=== PATIENT | female | born 1990 | race African-American/Black ===

== ENCOUNTER 2017-10-24 11:44 | Emergency (ER) | payer OTHER ==
[~2017-10-24] VITALS: Ht 162.5 cm; Wt 59.0 kg
[~2017-10-24 11:44] MED LIST: ACYCLOVIR800 MG PO; AMOXIL500 MG PO; BACTRIM DS 8001 TA1 PO; CIPRO250 MG PO; CLARITIN10 MG PO; DEPO PROVER150 MG/M1; DIFLUCAN150 MG PO; FLAGYL500 MG PO; FLONASE ALLERG9.9 ML NAS; MOTRIN800 MG PO; NKHM; PERCOCET 325 MG1 TA2 PO; PREDNISONE10 MG PO; PRENATAL1 TA1 PO; ROBITUSSIN AC 110 ML PO; TOBREX OPHTH S2.5 ML OPH; VALTREX500 MG PO; VICODIN 5/500 505 MG PO; VICODIN1 TAB; ZOVIRAX400 MG PO; Zofran4 MG PO
[2017-10-24] MEDS ORDERED: AMOXICILLIN500 M2 PO (12:59)
== END 2017-10-24 13:56 | disposition home or self-care (01) ==
LOC: ED 11:44
DX: H66.92 Otitis media, unspecified, left ear (principal); F17.200 Nicotine dependence, unspecified, uncomplicated; Z98.890 Other specified postprocedural states

== ENCOUNTER 2018-01-04 14:47 | Emergency (ER) | payer OTHER ==
[~2018-01-04] VITALS: Ht 162.5 cm; Wt 62.6 kg
[~2018-01-04 14:47] MED LIST changes: +AMOXICILLIN500 M2 PO
[2018-01-04] MEDS ORDERED: NAPROSYN500 MG PO (16:41)
== END 2018-01-04 16:59 | disposition home or self-care (01) ==
LOC: ED 14:47
DX: S46.911A Strain of unspecified muscle, fascia and tendon at shoulder and upper arm level, right arm, initial encounter (principal); W19.XXXA Unspecified fall, initial encounter; Y93.89 Activity, other specified; Y92.89 Other specified places as the place of occurrence of the external cause; Y99.8 Other external cause status

== ENCOUNTER → 2018-06-23 | Outpatient (CLI) | payer OTHER ==
[~2018-06-23] MED LIST changes: +NAPROSYN500 MG PO
--- NOTE | ~2018-06-23 | EKG ---
[place], [place] ELECTROCARDIOGRAM REPORT NAME: NAGA MAYS UNIT #: [id number] ROOM: DOCTOR: EPIPHANY DRAFT REPORT BIRTHDATE: [address] [facility] Test Date: 2018-06-23 Test Time: 17:47:18 Pat Name: NAGA MAYS Department: Room: Gender: F Gang Boss: Yojana Bhatt : 1990 Requested By: MARY SOLORZANO Order Number: [id number] Reading MD: Karan Gomes MD Measurements Intervals [place] Rate: 64 P: 45 SD: 274 QRS: 69 QRSD: 87 T: 47 QT: 423 QTc: 437 Interpretive Statements Sinus rhythm Prolonged SD interval No previous ECG available for comparison Electronically Signed On 06-24-2018 4:09:53 PDT by Karan Gomse MD CM:EKGRPT:ELECTROCARDIOGRAM REPORT [id number] MARY SOLORZANO EPIPHANY DRAFT REPORT MARY SOLORZANO
[2018-06-23 17:05] LABS: BASO # 0.1 10*3/uL (0.0-0.1); BASO % 0.6 % (0.0-1.0); EOS # 0.3 10*3/uL (0.0-0.4); EOS % 3.3 % (1.0-4.0); HEMOGLOBIN 13.9 g/dl (12.0-16.0); LYMPH # 2.2 10*3/uL (1.3-4.4); LYMPH % 26.4 % (27.0-41.0); MEAN CELL VOLUME 98.2 fl (81.0-99.0); MEAN CORPUSCULAR HGB 31.7 pg (27.0-31.0); MEAN CORPUSCULAR HGB CONC 32.3 g/dl (33.0-37.0); MEAN PLATELET VOLUME 11.4 fl (9.6-12.3); MONO # 0.4 10*3/uL (0.1-1.0); MONO % 5.1 % (3.0-9.0); NEUT # 5.3 10*3/uL (2.3-7.9); NEUT % 64.4 % (47.0-73.0); PLATELET COUNT AUTOMATED 201 10*3/uL (130-400); RED BLOOD COUNT 4.38 10*6/uL (4.10-5.10); WHITE BLOOD COUNT 8.2 10*3/uL (4.8-10.8)
[2018-06-23 17:35] LABS: ALBUMIN 3.9 gm/dl (3.1-4.5); ALKALINE PHOSPHATASE 58 U/L (45-117); BUN 13 mg/dl (7-24); CHLORIDE 103 mmol/L (98-107); CHOLESTEROL 185 mg/dL (<200); CREATININE 0.77 mg/dL (0.55-1.02); HDL CHOLESTEROL 67 mg/dl (40-60); LDL CHOLESTEROL 97 mg/dL (9-159); POTASSIUM 3.9 mmol/L (3.5-5.1); SGOT/AST 15 IU/L (3-35); SGPT/ALT 22 U/L (12-78); SODIUM 135 mmol/L (136-145); TOTAL PROTEIN 7.5 gm/dL (6.4-8.2); TRIGLYCERIDES 105 mg/dl (<150); VLDL CHOLESTEROL 21 mg/dL (6-40)
== END | disposition home or self-care (01) ==
LOC: LAB 16:19
PROVIDERS: Nurse Practitioner Family
DX: M54.2 Cervicalgia (principal); M25.561 Pain in right knee; Z82.49 Family history of ischemic heart disease and other diseases of the circulatory system; Z72.0 Tobacco use

== ENCOUNTER 2019-01-20 11:09 | Emergency (ER) | payer OTHER ==
[~2019-01-20] VITALS: Ht 162.5 cm; Wt 63.5 kg
[2019-01-20 12:20] LABS: BASO % 0.6 % (0.0-1.0); EOS # 0.2 10*3/uL (0.0-0.4); EOS % 2.7 % (1.0-4.0); HEMATOCRIT 39.8 % (37.0-47.0); HEMOGLOBIN 13.3 g/dl (12.0-16.0); LYMPH # 1.5 10*3/uL (1.3-4.4); MEAN CELL VOLUME 96.1 fl (81.0-99.0); MEAN CORPUSCULAR HGB 32.1 pg (27.0-31.0); MEAN CORPUSCULAR HGB CONC 33.4 g/dl (33.0-37.0); MEAN PLATELET VOLUME 11.6 fl (9.6-12.3); MONO # 0.5 10*3/uL (0.1-1.0); NEUT # 4.2 10*3/uL (2.3-7.9); NEUT % 65.5 % (47.0-73.0); PLATELET COUNT AUTOMATED 187 10*3/uL (130-400); RED BLOOD COUNT 4.14 10*6/uL (4.10-5.10); RED CELL DISTRI WIDTH 12.4 % (0-14.5); WHITE BLOOD COUNT 6.4 10*3/uL (4.8-10.8)
[2019-01-20 12:33] LABS: ALBUMIN 3.5 gm/dl (3.1-4.5); ALKALINE PHOSPHATASE 53 U/L (45-117); BUN 11 mg/dl (7-24); CHLORIDE 108 mmol/L (98-107); CREATININE 0.79 mg/dL (0.55-1.02); LIPASE 158 U/L (73-393); SGOT/AST 19 IU/L (3-35); SGPT/ALT 24 U/L (12-78); SODIUM 137 mmol/L (136-145); TOTAL PROTEIN 6.9 gm/dL (6.4-8.2)
[2019-01-20 13:24] LABS: BILIRUBIN NEGATIVE (NEGATIVE); BLOOD NEGATIVE (NEGATIVE); CLARITY SL CLOUDY (CLEAR); COLOR YELLOW (YELLOW); GLUCOSE NEGATIVE (NEGATIVE); KETONE NEGATIVE (NEGATIVE); LEUKO ESTERASE NEGATIVE (NEGATIVE); NITRITE NEGATIVE (NEGATIVE); PH 7.5 (5.0-9.0); UROBILINOGEN 0.2 E.U./dl (0.2-1.0)
[2019-01-20] MEDS ORDERED: IBUPROFEN600 MG PO (13:42)
[2019-01-20] MEDS ORDERED: PROVENTIL HFA6.7 GM INH (13:42)
[2019-01-20] MEDS ORDERED: TESSALON PERLE100 M1 PO (13:42)
== END 2019-01-20 14:09 | disposition home or self-care (01) ==
LOC: ED 11:09
PROVIDERS: Physician Assistant
DX: N94.89 Other specified conditions associated with female genital organs and menstrual cycle (principal); J40 Bronchitis, not specified as acute or chronic; Z32.02 Encounter for pregnancy test, result negative; Z79.899 Other long term (current) drug therapy; Z79.2 Long term (current) use of antibiotics

== ENCOUNTER 2020-01-18 10:07 | Emergency (ER) | payer OTHER ==
[~2020-01-18] VITALS: Wt 63.5 kg
[~2020-01-18 10:07] MED LIST changes: +IBUPROFEN600 MG PO; +PROVENTIL HFA6.7 GM INH; +TESSALON PERLE100 M1 PO
[2020-01-18 10:41] LABS: BILIRUBIN Negative (Negative); BLOOD 3+ (Negative); COLOR Orange (Yellow); GLUCOSE Negative (Negative); KETONE Trace (Negative); LEUKO ESTERASE Trace (Negative); NITRITE Negative (Negative)
[2020-01-18 10:42] LABS: BASO # 0.1 10*3/uL (0.0-0.1); BASO % 0.4 % (0.0-1.0); EOS # 0.4 10*3/uL (0.0-0.4); EOS % 1.8 % (1.0-4.0); HEMATOCRIT 39.4 % (37.0-47.0); LYMPH % 14.8 % (27.0-41.0); MEAN CELL VOLUME 95.2 fl (81.0-99.0); MEAN CORPUSCULAR HGB 32.1 pg (27.0-31.0); MEAN CORPUSCULAR HGB CONC 33.8 g/dl (33.0-37.0); MONO # 0.8 10*3/uL (0.1-1.0); NEUT # 15.7 10*3/uL (2.3-7.9); NEUT % 78.5 % (47.0-73.0); PLATELET COUNT AUTOMATED 186 10*3/uL (130-400); RED BLOOD COUNT 4.14 10*6/uL (4.10-5.10)
[2020-01-18 10:51] LABS: CLARITY Clear (Clear)
[2020-01-18 10:55] LABS: BACTERIA 1+; MUCOUS 1+
[2020-01-18 10:56] LABS: ALBUMIN 3.9 gm/dl (3.1-4.5); ALKALINE PHOSPHATASE 51 U/L (45-117); BUN 8 mg/dl (7-24); CHLORIDE 112 mmol/L (98-107); CREATININE 0.72 mg/dL (0.55-1.02); POTASSIUM 3.7 mmol/L (3.5-5.1); SGPT/ALT 27 U/L (12-78); SODIUM 143 mmol/L (136-145); TOTAL PROTEIN 7.6 gm/dL (6.4-8.2)
[2020-01-18 11:01] LABS: SGOT/AST 11 IU/L (3-35)
== END 2020-01-18 16:55 | disposition short-term general hospital (02) ==
LOC: ED 10:07
PROVIDERS: Nurse Practitioner Family
DX: O03.4 Incomplete spontaneous abortion without complication (principal)

== ENCOUNTER 2021-01-15 10:26 | Emergency (ER) | payer OTHER ==
[~2021-01-15] VITALS: Ht 162.5 cm; Wt 59.0 kg
[2021-01-15] MEDS ORDERED: AVPAK AZITHROM250 M1 PO (13:45)
== END 2021-01-15 14:16 | disposition home or self-care (01) ==
LOC: ED 10:26
DX: J02.9 Acute pharyngitis, unspecified (principal); Z20.822 Contact with and (suspected) exposure to COVID-19; R05.9 Cough, unspecified; R51.9 Headache, unspecified; F17.200 Nicotine dependence, unspecified, uncomplicated

== ENCOUNTER 2024-02-29 10:09 | Emergency (ER) | payer OTHER ==
[~2024-02-29] VITALS: Ht 162.5 cm; Wt 70.3 kg
[~2024-02-29 10:09] MED LIST changes: +AVPAK AZITHROM250 M1 PO
[2024-02-29] MEDS ORDERED: GNP PRENATAL 28-0.8 (10:18)
[2024-02-29 10:57] LABS: BASO % 0.1 % (0.0-1.0); EOS # 0.3 10*3/uL (0.0-0.4); HEMATOCRIT 35.7 % (37.0-47.0); MEAN CELL VOLUME 91.3 fl (81.0-99.0); MEAN CORPUSCULAR HGB 30.4 pg (27.0-31.0); MEAN CORPUSCULAR HGB CONC 33.3 g/dl (33.0-37.0); MEAN PLATELET VOLUME 10.7 fl (9.6-12.3); MONO # 0.8 10*3/uL (0.1-1.0); MONO % 5.2 % (3.0-9.0); NEUT # 13.4 10*3/uL (2.3-7.9); NEUT % 85.3 % (47.0-73.0); PLATELET COUNT AUTOMATED 192 10*3/uL (130-400); RED BLOOD COUNT 3.91 10*6/uL (4.10-5.10); WHITE BLOOD COUNT 15.7 10*3/uL (4.8-10.8)
[2024-02-29 11:16] LABS: CHLORIDE 105 mmol/L (98-107); POTASSIUM 3.9 mmol/L (3.4-5.1)
[2024-02-29 11:22] LABS: BUN < 5 mg/dl (9-23)
[2024-02-29] MEDS ORDERED: AMOX-CLAV 875-1 EACH PO (11:48)
[2024-02-29] MEDS ORDERED: Amoxicillin/Clavulanate Pota 875 MG TAB PO ONE (11:50)
== END 2024-02-29 11:55 | disposition home or self-care (01) ==
LOC: ED 10:09
PROVIDERS: Nurse Practitioner Family
DX: J98.4 Other disorders of lung (principal); Z20.822 Contact with and (suspected) exposure to COVID-19; Z98.890 Other specified postprocedural states

== ENCOUNTER → 2024-07-24 | Outpatient (CLI) | payer OTHER ==
[~2024-07-24] MED LIST changes: +AMOX-CLAV 875-1 EACH PO; +GNP PRENATAL 28-0.8
[2024-07-24 14:16] LABS: BASO % 0.6 % (0.0-1.0); EOS # 0.3 10*3/uL (0.0-0.4); EOS % 4.3 % (1.0-4.0); HEMATOCRIT 39.6 % (37.0-47.0); MEAN CORPUSCULAR HGB 30.1 pg (27.0-31.0); MEAN CORPUSCULAR HGB CONC 33.1 g/dl (33.0-37.0); MEAN PLATELET VOLUME 10.4 fl (9.6-12.3); MONO # 0.4 10*3/uL (0.1-1.0); MONO % 5.5 % (3.0-9.0); NEUT # 3.7 10*3/uL (2.3-7.9); PLATELET COUNT AUTOMATED 243 10*3/uL (130-400); RED BLOOD COUNT 4.35 10*6/uL (4.10-5.10); RED CELL DISTRI WIDTH 12.7 % (0-14.5)
[2024-07-24 14:59] LABS: ALKALINE PHOSPHATASE 86 U/L (46-116); BUN 8 mg/dl (9-23); CHLORIDE 103 mmol/L (98-107); FREE T4 0.98 ng/dl (0.89-1.76); POTASSIUM 4.2 mmol/L (3.4-5.1); SGPT/ALT 47 U/L (5-49); TOTAL PROTEIN 7.6 gm/dL (6.0-8.0)
== END | disposition home or self-care (01) ==
LOC: LAB 13:51
PROVIDERS: ATTEND Internal Medicine
DX: R53.83 Other fatigue (principal)